=== PATIENT | female | born 1960 | race Caucasian/White ===

== ENCOUNTER 2021-04-15 09:54 | Inpatient (IN) | payer OTHER ==
[~2021-04-15] VITALS: Ht 165.1 cm; Wt 122.3 kg
[~2021-04-15 09:54] MED LIST: ALLERGY10 M1 PO; BENTYL10 MG PO; COMBIGAN EYE DRO5 ML OS; DORZOLAMIDE 2%10 ML OS; DRISDOL50000 UNIT PO; FLEXERIL10 MG PO; FLINTSTONES CO1 EAC1 PO; FLONASE ALLER15.8 ML; FLUOXETINE HCL20 MG PO; IBUPROFEN800 MG PO; LISINOPRIL 10MG10 MG PO; OMEPRAZOLE40 MG PO; SYNTHROID100 MCG PO; XALATAN2.5 ML OS; ZOFRAN4 MG PO
[2021-04-15 10:21] LABS: BASOPHIL 0.3 % (0-2); EOSINOPHIL 0 % (0-5); HCT 38.9 % (37.0-47.0); HGB 12.6 g/dl (12.5-16.0); LYMPHOCYTE 4.9 % (15-48); MCHC 32.4 g/dL (32.0-36.0); MCV 89.6 fL (78.0-100.0); MONOCYTE 6.1 % (0-12); MPV 10.4 fL (6.0-9.5); NEUTROPHIL 87.8 % (41-80); NRBC 0; PLT 329 K/uL (150-400); RBC 4.34 M/uL (4.20-5.40); RDW 14.2 % (11.5-14.0)
[2021-04-15 10:30] LABS: WBC 17.9 K/uL (4.0-10.5)
[2021-04-15 10:52] LABS: PRO-BNP 1383 pg/mL (<125)
[2021-04-15 11:11] LABS: ALBUMIN 2.5 g/dL (3.4-5.0); ALKALINE PHOSHATASE 184 U/L (46-116); ALT 31 U/L (14-59); AST 30 U/L (15-37); BILIRUBIN - TOTAL 0.9 mg/dL (0.2-1.0); BUN 20 mg/dL (7-18); BUN/CREAT RATIO (CALC) 9.6 RATIO; CHLORIDE 104 mmol/L (98-107); CO2 (BICARBONATE) 19 mmol/L (21-32); CREATININE 2.08 mg/dL (0.51-0.95); GLOBULIN (CALCULATION) 4.6 g/dL; GLUCOSE 110 mg/dL (74-106); LDH 178 U/L (81-234); MAGNESIUM 1.7 mg/dL (1.8-2.4); POTASSIUM 3.4 mmol/L (3.5-5.1); TOTAL PROTEIN 7.1 g/dL (6.4-8.2)
[2021-04-15 11:12] LABS: C-REACTIVE PROTEIN >18.00 mg/dL (<=0.90)
[2021-04-15 15:37] LABS: BILIRUBIN 1+ mg/dL (NEGATIVE); BLOOD 2+ Ery/uL (NEGATIVE); CLARITY CLEAR (CLEAR); GLUCOSE (U) TRACE mg/dL (NORMAL); LEUKOCYTES TRACE Leu/uL (NEGATIVE); NITRITE POSITIVE (NEGATIVE); PROTEIN 2+ mg/dL (NEGATIVE); pH 5.5 (5.0-9.0)
[2021-04-15 15:42] LABS: COLOR ORANGE (YELLOW)
[2021-04-15 15:45] LABS: BACTERIA 2+
[2021-04-16 05:11] LABS: HCT 35.1 % (37.0-47.0); MCH 28.7 pg (25.0-31.0); MCHC 31.3 g/dL (32.0-36.0); MCV 91.6 fL (78.0-100.0); MPV 10.2 fL (6.0-9.5); RBC 3.83 M/uL (4.20-5.40); RDW 14.6 % (11.5-14.0); WBC 12.2 K/uL (4.0-10.5)
[2021-04-16 05:26] LABS: BUN/CREAT RATIO (CALC) 11.5 RATIO; CREATININE 2.26 mg/dL (0.51-0.95); MAGNESIUM 1.5 mg/dL (1.8-2.4); PHOSPHORUS 2.7 mg/dL (2.6-4.7); POTASSIUM 3.6 mmol/L (3.5-5.1)
[2021-04-16 08:27] LABS: BASOPHIL 0.7 % (0-2); EOSINOPHIL 0.1 % (0-5); HCT 34.9 % (37.0-47.0); HGB 10.5 g/dl (12.5-16.0); LYMPHOCYTE 7.2 % (15-48); MCH 29.1 pg (25.0-31.0); MCHC 30.1 g/dL (32.0-36.0); MCV 96.7 fL (78.0-100.0); MONOCYTE 5.2 % (0-12); MPV 10.1 fL (6.0-9.5); NEUTROPHIL 84.4 % (41-80); NRBC 0; PLT 241 K/uL (150-400); RBC 3.61 M/uL (4.20-5.40); RDW 14.6 % (11.5-14.0); WBC 10.4 K/uL (4.0-10.5)
[2021-04-16 08:47] LABS: ALBUMIN 1.8 g/dL (3.4-5.0); BUN/CREAT RATIO (CALC) 12.1 RATIO; CREATININE 2.31 mg/dL (0.51-0.95); GLOBULIN (CALCULATION) 3.8 g/dL; POTASSIUM 3.7 mmol/L (3.5-5.1); TOTAL PROTEIN 5.6 g/dL (6.4-8.2)
[2021-04-16] MEDS ORDERED: PROZAC20 MG PO (12:49)
[2021-04-16] MEDS ORDERED: SYNTHROID88 MCG PO (12:50)
[2021-04-16] MEDS ORDERED: IBUPROFEN800 MG PO (12:50)
[2021-04-16] MEDS ORDERED: PRILOSEC20 MG PO (12:51)
[2021-04-16] MEDS ORDERED: PRINIVIL10 MG PO (12:51)
[2021-04-16] MEDS ORDERED: VITAMIN D2 PO (12:53)
[2021-04-16] MEDS ORDERED: LIPITOR20 MG PO (12:54)
[2021-04-16] MEDS ORDERED: MULTIVITAMIN PO (12:55)
[2021-04-16] MEDS ORDERED: ZYRTEC PO (12:58)
[2021-04-16] MEDS ORDERED: XALATAN2.5 ML OS (13:05)
[2021-04-16] MEDS ORDERED: COMBIGAN EYE DRO5 ML OS (13:06)
[2021-04-16] MEDS ORDERED: DORZOLAMIDE HCL10 ML OS (13:06)
[2021-04-17 09:11] LABS: BASOPHIL 0.5 % (0-2); EOSINOPHIL 0.8 % (0-5); HCT 31.6 % (37.0-47.0); HGB 10.2 g/dl (12.5-16.0); LYMPHOCYTE 11.6 % (15-48); MCH 28.7 pg (25.0-31.0); MCHC 32.3 g/dL (32.0-36.0); MONOCYTE 5.6 % (0-12); MPV 10.2 fL (6.0-9.5); NEUTROPHIL 79.5 % (41-80); NRBC 0; PLT 281 K/uL (150-400); RBC 3.56 M/uL (4.20-5.40); RDW 15.1 % (11.5-14.0)
[2021-04-17 09:15] LABS: MCV 88.8 fL (78.0-100.0); WBC 10.2 K/uL (4.0-10.5)
[2021-04-17 09:36] LABS: BUN/CREAT RATIO (CALC) 16.4 RATIO; CREATININE 2.26 mg/dL (0.51-0.95); POTASSIUM 3.6 mmol/L (3.5-5.1)
[2021-04-18 06:12] LABS: EOSINOPHIL 1.2 % (0-5); HCT 30.4 % (37.0-47.0); HGB 9.8 g/dl (12.5-16.0); LYMPHOCYTE 16.3 % (15-48); MCH 28.8 pg (25.0-31.0); MCHC 32.2 g/dL (32.0-36.0); MCV 89.4 fL (78.0-100.0); MONOCYTE 7.5 % (0-12); NEUTROPHIL 67.9 % (41-80); NRBC 0; PLT 261 K/uL (150-400); RDW 15.3 % (11.5-14.0)
[2021-04-18 06:14] LABS: WBC 9.4 K/uL (4.0-10.5)
[2021-04-18 06:34] LABS: BUN/CREAT RATIO (CALC) 18.3 RATIO; CREATININE 2.08 mg/dL (0.51-0.95); POTASSIUM 3.4 mmol/L (3.5-5.1)
[2021-04-18 15:00] LABS: PROTEIN:CREATININE 0.95 RATIO; URINE CREATININE 55.51 mg/dL (29.00-226.00); URINE TOTAL PROTEIN-RANDOM 52.8 mg/dL (<11.9)
[2021-04-19 05:34] LABS: BASOPHIL 0.5 % (0-2); EOSINOPHIL 0.5 % (0-5); HCT 33.1 % (37.0-47.0); HGB 10.6 g/dl (12.5-16.0); LYMPHOCYTE 11.3 % (15-48); MCH 28.2 pg (25.0-31.0); MONOCYTE 5.2 % (0-12); NEUTROPHIL 76.7 % (41-80); NRBC 0; PLT 305 K/uL (150-400); RBC 3.76 M/uL (4.20-5.40); RDW 15.7 % (11.5-14.0)
[2021-04-19 05:35] LABS: WBC 13.5 K/uL (4.0-10.5)
[2021-04-19 06:32] LABS: BUN/CREAT RATIO (CALC) 19.3 RATIO; CREATININE 1.87 mg/dL (0.51-0.95); MAGNESIUM 1.9 mg/dL (1.8-2.4); POTASSIUM 3.6 mmol/L (3.5-5.1)
[2021-04-19 16:39] LABS: BASOPHIL 0.4 % (0-2); EOSINOPHIL 0 % (0-5); HCT 35.8 % (37.0-47.0); HGB 11.6 g/dl (12.5-16.0); LYMPHOCYTE 6.7 % (15-48); MCH 28.6 pg (25.0-31.0); MCHC 32.4 g/dL (32.0-36.0); MCV 88.2 fL (78.0-100.0); MONOCYTE 4.9 % (0-12); MPV 9.9 fL (6.0-9.5); NEUTROPHIL 82.4 % (41-80); NRBC 0; PLT 317 K/uL (150-400); RBC 4.06 M/uL (4.20-5.40); RDW 15.8 % (11.5-14.0); WBC 20.2 K/uL (4.0-10.5)
[2021-04-19 17:17] LABS: BUN/CREAT RATIO (CALC) 21.7 RATIO; CREATININE 1.75 mg/dL (0.51-0.95); POTASSIUM 3.3 mmol/L (3.5-5.1)
--- NOTE | 2021-04-19 19:20 | NUR ---
PATIENT GAVE PERMISSION TO GIVE INFORMATION TO HER DAUGHTER, DAUGHTER AND PATIENT IN THE ROOM. PASSWORD SET UP IS [id number]
[2021-04-20 06:30] LABS: BASOPHIL 0.3 % (0-2); EOSINOPHIL 0 % (0-5); HCT 35.1 % (37.0-47.0); HGB 11.3 g/dl (12.5-16.0); LYMPHOCYTE 5.4 % (15-48); MCH 28.6 pg (25.0-31.0); MCHC 32.2 g/dL (32.0-36.0); MCV 88.9 fL (78.0-100.0); MONOCYTE 8.4 % (0-12); MPV 10.1 fL (6.0-9.5); NEUTROPHIL 80.8 % (41-80); NRBC 0.1; PLT 392 K/uL (150-400); RBC 3.95 M/uL (4.20-5.40); RDW 15.9 % (11.5-14.0)
[2021-04-20 06:32] LABS: WBC 21.7 K/uL (4.0-10.5)
[2021-04-20 07:00] LABS: ALBUMIN 1.8 g/dL (3.4-5.0); ALKALINE PHOSHATASE 247 U/L (46-116); ALT 22 U/L (14-59); AST 51 U/L (15-37); BILIRUBIN - TOTAL 0.4 mg/dL (0.2-1.0); BUN 40 mg/dL (7-18); BUN/CREAT RATIO (CALC) 25.6 RATIO; C-REACTIVE PROTEIN >18.00 mg/dL (<=0.90); CHLORIDE 110 mmol/L (98-107); CO2 (BICARBONATE) 14 mmol/L (21-32); CREATININE 1.56 mg/dL (0.51-0.95); GLOBULIN (CALCULATION) 3.9 g/dL; GLUCOSE 137 mg/dL (74-106); MAGNESIUM 1.8 mg/dL (1.8-2.4); POTASSIUM 3.5 mmol/L (3.5-5.1); TOTAL PROTEIN 5.7 g/dL (6.4-8.2)
--- NOTE | 2021-04-20 12:55 | NUR ---
TO ROOM [facility] 7 FOR INTUBATION. , RESPIRATORY, MYSELF, ESPINOZA RN TO BEDSIDE. PATIENT ON 100% NRB, DR BLANC INTUBATING. PATIENT BEING BAGGED WITH AMBU BAG PRE-INTUBATION. 35MG OF ETOMIDATE GIVEN IVP PER DR BLANC ORDER AT 1229 150MG OF SUCCINATE GIVEN IVP PER DR BLANC ORDER AT 1230 PATIENT INTUBATED WITH 7.5ET TUBE AT 1231 POSITIVE CO2 CHANGE, BILATERAL BREATH SOUNDS ASCULATED AND EQUAL. PATIENT GIVEN 10MG IVP VECURONIUM AT [address] BLANC ORDER PATIENT PLACED ON VENT BY RT. VITALS STABLE. NO DISTRESS NOTED. SEE VITAL SIGN DOCUMENTATION FOR VITALS PRE, DURING AND POST INTUBATION.
[2021-04-21 06:02] LABS: BASOPHIL 0.2 % (0-2); EOSINOPHIL 0 % (0-5); HCT 33.4 % (37.0-47.0); HGB 10.8 g/dl (12.5-16.0); LYMPHOCYTE 3.5 % (15-48); MCHC 32.3 g/dL (32.0-36.0); MCV 89.5 fL (78.0-100.0); MONOCYTE 7.2 % (0-12); NEUTROPHIL 85.2 % (41-80); NRBC 0.1; PLT 334 K/uL (150-400); RBC 3.73 M/uL (4.20-5.40); RDW 16.3 % (11.5-14.0); WBC 26.4 K/uL (4.0-10.5)
[2021-04-21 06:49] LABS: ALBUMIN 1.8 g/dL (3.4-5.0); BILIRUBIN - TOTAL 0.3 mg/dL (0.2-1.0); BUN/CREAT RATIO (CALC) 28.3 RATIO; CREATININE 1.84 mg/dL (0.51-0.95); GLOBULIN (CALCULATION) 3.6 g/dL; MAGNESIUM 1.8 mg/dL (1.8-2.4); POTASSIUM 3.1 mmol/L (3.5-5.1); TOTAL PROTEIN 5.4 g/dL (6.4-8.2)
--- NOTE | 2021-04-21 20:12 | NUR ---
PATIENT TO BE TRANSFERRED TO [facility] [place]. REPORT GIVEN TO PRATIMA. TRANSFERRED [facility]IA [facility].
[2021-04-25 08:10] LABS: ANTIMYELOPEROXIDASE (MPO) ABS <9.0 U/mL (0.0-9.0); ANTIPROTEINASE 3 (PR-3) ABS <3.5 U/mL (0.0-3.5); ATYPICAL PANCA <1:20 titer (Neg:<1:20); CYTOPLASMIC (C-ANCA) <1:20 titer (Neg:<1:20); PERINUCLEAR (P-ANCA) <1:20 titer (Neg:<1:20)
== END 2021-04-21 21:08 | disposition other institution (70) | DRG 871 ==
LOC: FER 09:54 → FTCU 04-16 08:13 → FMS 04-16 08:13 → FTCU 04-19 18:36
PROVIDERS: Emergency Medicine; Internal Medicine; Internal Medicine Nephrology; Nurse Practitioner; ADMIT Internal Medicine
PROC: 3E033XZ Introduction of Vasopressor into Peripheral Vein, Percutaneous Approach (ICD-10-PCS; 2021-04-16)
PROC: 8E0ZXY6 Isolation (ICD-10-PCS; 2021-04-19)
PROC: 02HV33Z Insertion of Infusion Device into Superior Vena Cava, Percutaneous Approach (ICD-10-PCS; 2021-04-20)
PROC: B548ZZA Ultrasonography of Superior Vena Cava, Guidance (ICD-10-PCS; 2021-04-20)
PROC: XW033E5 Introduction of Remdesivir Anti-infective into Peripheral Vein, Percutaneous Approach, New Technology Group 5 (ICD-10-PCS; 2021-04-20)
PROC: 0BH17EZ Insertion of Endotracheal Airway into Trachea, Via Natural or Artificial Opening (ICD-10-PCS; principal; 2021-04-21)
PROC: 5A1945Z Respiratory Ventilation, 24-96 Consecutive Hours (ICD-10-PCS; 2021-04-21)
DX: A41.9 Sepsis, unspecified organism (principal); N17.0 Acute kidney failure with tubular necrosis; U07.1 COVID-19; J12.82 Pneumonia due to coronavirus disease 2019; J96.01 Acute respiratory failure with hypoxia; R65.21 Severe sepsis with septic shock; E87.0 Hyperosmolality and hypernatremia; Z68.42 Body mass index [BMI] 45.0-49.9, adult; E87.6 Hypokalemia; K21.9 Gastro-esophageal reflux disease without esophagitis; E66.01 Morbid (severe) obesity due to excess calories; I10 Essential (primary) hypertension; E03.9 Hypothyroidism, unspecified; E78.5 Hyperlipidemia, unspecified; E87.70 Fluid overload, unspecified; F32.9 Major depressive disorder, single episode, unspecified; E86.0 Dehydration; H40.9 Unspecified glaucoma; Z87.891 Personal history of nicotine dependence; Z90.710 Acquired absence of both cervix and uterus; Z98.890 Other specified postprocedural states; Z98.84 Bariatric surgery status
CPT/HCPCS: 31500; 36415; 36600; 71045; 71250; 76770; 80048; 80053; 81001; 82570; 82728; 82803; 82962; 83516; 83520; 83540; 83605; 83615; 83735; 83880; 84100; 84145; 84156; 84439; 84443; 84484; 85025; 85379; 86038; 86060; 86140; 86160; 86256; 87040; 87088; 93005; 94002; 94640; 94760; 94762; 96365; 96366; 96368; 96372; 96375; 96376; C9399; J0456; J0696; J1100; J1650; J1940; J1956; J2185; J2405; J2543; J2704; J2916; J2930; J3010; J3370; J3475; J3480; J7030; J7050; J7070; J7120; J8540; U0002

== ENCOUNTER 2021-06-30 18:11 | Emergency (ER) | payer OTHER ==
[~2021-06-30 18:11] MED LIST changes: +DORZOLAMIDE HCL10 ML OS; +LIPITOR20 MG PO; +MULTIVITAMIN PO; +PRILOSEC20 MG PO; +PRINIVIL10 MG PO; +PROZAC20 MG PO; +SYNTHROID88 MCG PO; +VITAMIN D2 PO; +ZYRTEC PO
[2021-06-30 19:48] LABS: BASOPHIL 0.7 % (0-2); EOSINOPHIL 0.2 % (0-5); HCT 34.9 % (37.0-47.0); HGB 10.9 g/dl (12.5-16.0); LYMPHOCYTE 26.6 % (15-48); MCH 29.2 pg (25.0-31.0); MCHC 31.2 g/dL (32.0-36.0); MCV 93.6 fL (78.0-100.0); MONOCYTE 7.3 % (0-12); MPV 10.7 fL (6.0-9.5); NEUTROPHIL 64.5 % (41-80); NRBC 0; PLT 479 K/uL (150-400); RBC 3.73 M/uL (4.20-5.40); RDW 16.1 % (11.5-14.0); WBC 12.1 K/uL (4.0-10.5)
[2021-06-30 20:02] LABS: BUN/CREAT RATIO (CALC) 17.5 RATIO; CREATININE 0.57 mg/dL (0.51-0.95); POTASSIUM 3.8 mmol/L (3.5-5.1)
[2021-06-30 22:47] LABS: LACTIC ACID 1.1 mmol/L (0.4-1.9)
[2021-06-30] MEDS ORDERED: MIRALAX17 GM PO (22:47)
== END 2021-06-30 23:50 | disposition home or self-care (01) ==
LOC: FER 18:11
PROVIDERS: Nurse Practitioner Family
DX: K59.00 Constipation, unspecified (principal); R10.84 Generalized abdominal pain; R11.0 Nausea; I10 Essential (primary) hypertension; E66.01 Morbid (severe) obesity due to excess calories; J44.9 Chronic obstructive pulmonary disease, unspecified; Z86.16 Personal history of COVID-19
CPT/HCPCS: 36415; 80048; 83605; 85025; J7030